=== PATIENT | female | born 1990 | race Caucasian/White ===

== ENCOUNTER 2022-01-16 04:59 | Emergency (ER) | payer MEDICAID, SELFPAY ==
[2022-01-16 05:06] VITALS: BP 105/71; PULSE 95; RESP 18; TEMP 36.4; O2SAT 98; BMI 21.9
--- NOTE | 2022-01-16 05:36 | CRLHL7_ITS ---
For Patients: As a result of the Cures Act, medical imaging exams and procedure reports are released immediately into your electronic medical record. You may view this report before your referring provider. If you have questions, please contact your health care provider. Indication: Fall, impact to the bridge of the nose Technique: Volumetric multidetector CT images of the head were obtained without the administration of low osmolar intravenous contrast. Comparison: None available Findings: There is no intra-axial or extra-axial fluid collection. There is no mass effect or midline shift. The ventricles and sulci are normal in size and position for age. The brain parenchyma is grossly preserved in attenuation and montoya-white differentiation. The orbits and their contents are grossly within normal limits. The bony calvarium is grossly intact. There is mild superficial soft tissue laceration at the nasion without definite evidence of underlying displaced fracture. The mastoid air cells are well aerated. Impression: Mild superficial soft tissue laceration at the nasion without evidence of acute intracranial abnormality. No evidence of underlying nasal bone fracture. Please note that all CT scans at this facility use dose modulation, iterative reconstruction, and/or weight-based dosing when appropriate to reduce radiation dose to as low as reasonably achievable. Dictated by Dave Coronel MD @ 01/16/2022 6:55:21 AM (Electronically Signed)
--- NOTE | 2022-01-16 05:37 | ED.WOUNDLAC ---
HPI - Wound/Laceration General Time Seen by Provider: 05:36 Date Seen: 01/16/22 Chief Complaint: Laceration/Wound Stated Complaint: Face laceration Time Seen by Provider: 01/16/22 05:00 Source: patient Mode of arrival: ambulatory Limitations: no limitations History of Present Illness HPI narrative: Patient is a 31-year-old female who was at her sister's house when she got up from sleep walk 2 steps and fell forward hitting her face on the ground. She suffered a laceration to the bridge of her nose. It bled a fair bit. And she came here to the emergency room for an assessment. There was no loss of consciousness. There is no neck pain. Denies any numbness tingling or weakness. He did drink some alcohol last night Onset (ago): minute(s) (30) Location: other (Bridge of the nose) Place: home Patient tetanus UTD: Yes Context: accidental Associated symptoms: pain Related Data Previous Rx's Medication Instructions Recorded trazodone 50 mg tablet 50 - 150 mg PO .qhs #30 tab 01/09/22 venlafaxine 150 mg 150 mg PO QAM #90 cap 01/09/22 capsule,extended release 24 hr venlafaxine 75 mg capsule,extended 75 mg PO QAM #90 cap 01/09/22 release 24 hr Allergies Allergy/AdvReac Type Severity Reaction Status Date / Time No Known Drug Allergies Allergy Verified 01/16/22 05:09 Review of Systems Status of ROS: Reports: 10 or more systems reviewed and unremarkable except as noted in History and below PFSH PFSH Medical History Anxiety and depression Crohn disease Insomnia Surgical History No significant past surgical history Family History Father Asthma COPD (chronic obstructive pulmonary disease) Paternal Grandfather Heart disease Maternal Grandmother Leukemia Skin cancer Mother Suicide Social History Narrative: father is still living sister is in good health depo-provera contraceptive status history of tobacco use Smoking Status: Current every day smoker What tobacco products do you use: cigarettes How often do you have a drink containing alcohol: monthly or less AUDIT-C Alcohol total score: 1 Non-prescribed substance use: denies use Little interest or pleasure in doing things: nearly every day Feeling down, depressed, or hopeless: several days Exam Const: Vital Signs, click to edit/add: Vital Signs - 24 hr 01/16/22 05:06 01/16/22 06:06 Temperature 97.6 F 97.6 F Pulse Rate [Right Pulse Oximeter] 95 89 Respiratory Rate 18 18 Blood Pressure [Ri ght Upper Arm] 105/71 110/75 Pulse Oximetry 98 98 Documenting provider has reviewed patient's vital signs: yes Common normals: no apparent distress, average body habitus, oriented x3, no limitations, healthy appearing, alert and well nourished General appearance: cooperative, comfortable, well kempt, well developed and odor of alcohol detected Orientation/consciousness: Yes awake, Yes oriented to person, Yes oriented to place and Yes oriented to time HENMT: Common normals: normocephalic, hearing grossly normal bilaterally, external ears normal, EAC's normal, TM's normal bilaterally, nasal mucous membranes and turbinates normal, moist oral mucous membranes, oropharynx normal, dentition normal and gingiva normal Head and scalp: normocephalic Face and sinus: sinuses nontender, face symmetric, normal transillumination of sinuses and facial laceration (There is the 2 cm laceration across the bridge of her nose. T) Nose: nasal mucous membranes and turbinates normal, septum normal, no nasal discharge, external nose abnormal nasal laceration and mucous membranes and turbinates abnormal General ear: hearing grossly impaired External ear: external ears normal External auditory canal: EAC's normal Tympanic membrane: TM's normal bilaterally Mouth: oral and palatal mucosa normal, lip normal, tongue normal and moist mucous membranes abnormal Eye: Common normals: PERRL, EOMs intact bilaterally, conjunctivae normal, no scleral icterus, no papilledema, normal visual restrepo by confrontation and fundi normal bilaterally General eye: normal appearance of both eyes and normal light reflex Conjunctiva: conjunctiva(e) normal Pupil: PERRL Direct Ophthalmoscopy: normal light reflex, no papilledema and fundi normal bilaterally Neck & C-Spine: Common normals: full ROM, no lymphadenopathy, supple, no meningeal signs and no JVD General: normal visual inspection and trachea midline Lymph: Lymphatic: no lymphadenopathy noted and no lymphedema noted Chest: Common normals: inspection of chest normal and palpation of chest normal Resp: Common normals: normal respiratory effort, no retractions, no use of accessory muscles and clear to auscultation bilaterally Effort & inspection: able to speak in complete sentences Auscultation: clear to auscultation bilaterally Cardio: Common normals: no JVD, regular rate, regular rhythm, S1 normal heart sound, S2 normal heart sound, no gallops, no clicks, no murmurs, no rub and peripheral pulses 2+ throughout Rate: regular rate Rhythm: regular rhythm Heart sounds: S1 normal and S2 normal Peripheral pulses: pulses 2+ throughout : Common normals: no CVA tenderness Bladder/kidney exam: no CVA tenderness Back & Pelvis: Common normals: no CVA tenderness, thoracic and lumbar spine normal to inspection, no thoracic nor lumbar tenderness, thoraco-lumbar ROM normal and straight leg raise negative bilaterally Extremity: Common normals: normal to inspection, full ROM, normal capillary refill, no joint enlargement, no clubbing, cyanosis or edema, no calf tenderness and no pedal edema General: normal exam except as noted Neuro: Common normals: oriented x3 Sensorium/orientation: awake, alert, oriented to person, oriented to place and oriented to time Meningeal signs: no meningeal signs Cranial nerves: CN normal except as noted Speech: speech normal Gait (neuro): normal gait Motor exam: strength 5/5 throughout Psych: Appearance: well kempt Course Course Hospital Course: Let is applied to the wound, the wound is cleaned out with Hibiclens, CT scan is obtained, showing no evidence of intracranial abnormality, no bony abnormality also. By my review. Radiology is reviewed in in agreement. Skin adhesive is used. This closed nicely the laceration. Eyes were protected the patient was put in Trendelenburg, glue was used across the bridge of the nose this brought the wound nicely together. No complications patient was able to see fine afterwards. Vital Signs Vital signs: Initial Vital Signs Temperature 97.6 F 01/16/22 05:06 Temperature Source Temporal Artery Scan 01/16/22 05:06 Pulse Rate 95 01/16/22 05:06 Respiratory Rate 18 01/16/22 05:06 Blood Pressure 105/71 01/16/22 05:06 Blood Pressure Mean 82 01/16/22 05:06 Blood Pressure Position Sitting 01/16/22 05:06 Pulse Oximetry 98 01/16/22 05:06 Oxygen Delivery Method 01/16/22 05:06 Vital Signs Temperature 97.6 F 01/16/22 05:06 Pulse Rate 95 01/16/22 05:06 Respiratory Rate 18 01/16/22 05:06 Blood Pressure 105/71 01/16/22 05:06 Pulse Oximetry 98 01/16/22 05:06 Temperature 97.6 F 01/16/22 06:06 Pulse Rate 89 01/16/22 06:06 Respiratory Rate 18 01/16/22 06:06 Blood Pressure 110/75 01/16/22 06:06 Pulse Oximetry 98 01/16/22 06:06 MDM - Wound/Laceration MDM Narrative Medical decision making narrative: Life-threatening differential diagnosis is considered include: Subarachnoid hemorrhage, subdural hemorrhage, epidural hemorrhage. Other differential diagnosis considered include concussion, closed head injury, or neck fracture. Differential Diagnosis Differential diagnosis: Likely laceration, abscess, abrasion and avulsion of skin Medical Records Attestation: I reviewed the patient's medical records. Imaging Data CT scan - head: Attestation: I have reviewed the pertinent imaging results. My impression: No acute intracranial abnormality no bony abnormality, Radiologist's impression: Patient: DONAVON ATKINSON Facility:?[facility] Patient ID:?[id number] Site Patient ID:?[id number]. Site :?[id number] Study:?CT Head without contrast-01/16/2022 6:23:26 AM Ordering Physician:Lety Chappell Final Report: Indication: Fall, impact to the bridge of the nose Technique: Volumetric multidetector CT images of the head were obtained without the administration of low osmolar intravenous contrast. Comparison: None available Findings: There is no intra-axial or extra-axial fluid collection. There is no mass effect or midline shift. The ventricles and sulci are normal in size and position for age. The brain parenchyma is grossly preserved in attenuation and montoya-white differentiation. The orbits and their contents are grossly within normal limits. The bony calvarium is grossly intact. There is mild superficial soft tissue laceration at the nasion without definite evidence of underlying displaced fracture. The mastoid air cells are well aerated. Impression: Mild superficial soft tissue laceration at the nasion without evidence of acute intracranial abnormality. No evidence of underlying nasal bone fracture. Please note that all CT scans at this facility use dose modulation, iterative reconstruction, and/or weight-based dosing when appropriate to reduce radiation dose to as low as reasonably achievable. Dictated by Dave Coronel MD @ 01/16/2022 6:55:21 AM (Electronic Signature) Discharge Plan Discharge Clinical Impression: Laceration, Head injury Patient Disposition: Home, Self-Care Condition: Improved Instructions: Head Injury (ED), Skin Adhesive Care (ED), Head Laceration (ED) Additional Instructions: Home rest please do not manipulate the glue, takes approximately 2 days to get a strong his sutures. Then comes off by itself by day 5. Infection which very rarely can occurs swelling redness pain and fevers. He has come back if these occur. Activity Level: No Restrictions and Activity as Tolerated Activity Detail: No heavy lifting, Prescriptions: No Action trazodone 50 mg tablet 50 - 150 mg PO .qhs Qty: 30 0RF venlafaxine 75 mg capsule,extended release 24hr 75 mg PO QAM Qty: 90 0RF Rx Instructions: 1 po daily along with 150mg for a total of 225mg daily venlafaxine 150 mg capsule,extended release 24hr 150 mg PO QAM Qty: 90 0RF Rx Instructions: 1 po daily along with 75mg for total of 225mg daily Follow Up/Referrals: Jing Manuel PA-C [Primary Care Provider] - Stand Alone Forms: Daily Sales Exchange Info Instructions
[2022-01-16 06:06] VITALS: BP 110/75; PULSE 89; RESP 18; TEMP 36.4; O2SAT 98
[2022-01-16] MEDS: ACETAMINOPHEN 500 MG TABLET PO (06:33)
== END 2022-01-16 07:10 | disposition home or self-care (01) ==
PROVIDERS: Emergency Provider Family Medicine; PCP Physician Assistant Medical
DX: S01.21XA Laceration without foreign body of nose, initial encounter (principal); W01.10XA Fall on same level from slipping, tripping and stumbling with subsequent striking against unspecified object, initial encounter
CPT/HCPCS: 12011; 70450; 99284; A9270

== ENCOUNTER 2022-04-24 21:35 | Outpatient (REF) | payer MEDICAID, SELFPAY ==
[2022-04-24 22:05] LABS: Basophils Percent Auto 0.3 % (0.0-3.0); Hemoglobin* 12.8 gm/dL (12.0-16.0); Lymphocytes Percent Auto 14.2 % (20-44); Mean Corpuscular HGB Conc 35 gm/dL (32-36); Mean Corpuscular Hemoglobin 37 pg (26-34); Mean Corpuscular Volume 107 fL (80-100); Monocytes Percent Auto 15.7 % (0.0-11.0); Neutrophils Percent Auto 67.8 % (42.0-72.0); Platelet Count* 255 K/uL (140-440); RDW Coefficient of Variation % 14.4 % (11.5-15.5); Red Blood Count 3.45 m/uL (4.00-5.20); White Blood Count* 3.44 K/uL (4.50-11.00)
[2022-04-24 22:06] LABS: Slide Review Reflex No
[2022-04-24 22:08] LABS: Albumin* 4.7 g/dL (3.3-5.0); Chloride* 101 mmol/L (96-114)
[2022-04-24 22:09] LABS: Potassium* 3.2 mmol/L (3.6-5.1); Sodium* 137 mmol/L (135-149)
[2022-04-24 22:11] LABS: Creatinine* 0.6 mg/dL (0.5-1.5); Estimated Glomerular Filt Rate 124 ml/min
[2022-04-24 22:12] LABS: Alanine Aminotransferase* 76 U/L (4-35); Alkaline Phosphatase* 127 U/L (40-150); Aspartate Amino Transferase* 128 U/L (12-35); Bilirubin Direct* 0.2 mg/dL (0.0-0.5); Bilirubin Total* 0.5 mg/dL (0.1-1.5); Blood Urea Nitrogen* 7 mg/dL (5-24); Carbon Dioxide* 26 mmol/L (20-32); Glucose* 88 mg/dL (60-115); Total Protein* 7.1 g/dL (6.0-8.3)
[2022-04-24 22:13] LABS: Calcium* 9.9 mg/dL (8.4-10.6)
[2022-04-24 22:29] LABS: C Reactive Protein* < 0.5 mg/dL (0.5-1.0); Vitamin D 25 Hydroxy* 24 ng/mL (30-80)
[2022-04-24 22:43] LABS: Hepatitis B Surface Antigen* Negative (Negative)
[2022-04-24 23:02] LABS: Vitamin B12* 505 pg/mL (243-894)
[2022-04-24 23:05] LABS: Hepatitis B Surface Antibody* Negative (Negative)
[2022-04-26 16:46] LABS: Hepatitis A Antibodies, Total Negative (Negative); Hepatitis B Core Antibodies Negative (Negative)
== END 2022-04-24 21:36 | disposition home or self-care (01) ==
LOC: LAB 21:35
PROVIDERS: PCP Physician Assistant Medical; Visit Provider Physician Assistant Medical
DX: F41.9 Anxiety disorder, unspecified (principal); D84.821 Immunodeficiency due to drugs; K50.90 Crohn's disease, unspecified, without complications; Z79.899 Other long term (current) drug therapy
CPT/HCPCS: 36415; 80053; 80076; 82306; 82607; 85025; 86140; 86480; 86704; 86706; 86708; 87340

== ENCOUNTER 2022-05-06 16:53 | Outpatient (CLI) | payer MEDICAID, SELFPAY ==
--- NOTE | 2022-05-06 17:00 | CRLHL7_ITS ---
For Patients: As a result of the Cures Act, medical imaging exams and procedure reports are released immediately into your electronic medical record. You may view this report before your referring provider. If you have questions, please contact your health care provider. INDICATION: Elevated liver function tests TECHNIQUE: Ultrasound abdomen limited. Sonographic images of the right upper quadrant were obtained using peter-scale and color Doppler images. COMPARISON: None FINDINGS: Liver: Mild to moderate fatty infiltration of liver is noted. Gallbladder: No gallstones or sludge seen in the lumen. The gallbladder wall is normal in appearance. No pericholecystic fluid is present. No sonographic Ulloa???s sign is present. Common bile duct: 4 mm. No intrahepatic biliary ductal dilatation seen. Pancreas: The visualized pancreas has a coarsened parenchymal echotexture and otherwise unremarkable appearance. No ductal dilatation is identified. Right Kidney: 12.2 cm. No hydronephrosis or ureterectasis is seen. Vascular: The visualized abdominal aorta and IVC are unremarkable. IMPRESSION: 1. Mild to moderate fatty infiltration of liver is noted. Dictated by Shekhar Hanley MD @ 05/07/2022 8:00:34 AM Dictated by: Shekhar Hanley MD @ 05/07/2022 08:00:38 (Electronically Signed)
== END 2022-05-06 16:54 | disposition home or self-care (01) ==
LOC: US 16:53
PROVIDERS: PCP Physician Assistant Medical; Visit Provider Nurse Practitioner Family
DX: R79.89 Other specified abnormal findings of blood chemistry (principal); K76.0 Fatty (change of) liver, not elsewhere classified
CPT/HCPCS: 76705

== ENCOUNTER 2022-09-04 23:21 | Outpatient (REF) | payer MEDICAID, SELFPAY ==
[2022-09-05 02:58] LABS: Chloride* 104 mmol/L (96-114); Sodium* 139 mmol/L (135-149)
[2022-09-05 03:01] LABS: Blood Urea Nitrogen* 7 mg/dL (5-24); Calcium* 9.7 mg/dL (8.4-10.6); Carbon Dioxide* 26 mmol/L (20-32); Cholesterol* 205 mg/dL (90-199); Creatinine* 0.5 mg/dL (0.5-1.5); Estimated Glomerular Filt Rate 129 ml/min; Glucose* 121 mg/dL (60-115); Triglycerides* 75 mg/dL (40-149)
[2022-09-05 03:02] LABS: Iron* 71 ug/dL (37-170); Magnesium* 1.5 mg/dL (1.5-2.6)
[2022-09-05 03:19] LABS: Vitamin D 25 Hydroxy* 22 ng/mL (30-80)
[2022-09-05 03:38] LABS: Ferritin* 50.4 ng/mL (6.24-137.0)
[2022-09-05 03:51] LABS: Vitamin B12* 602 pg/mL (243-894)
[2022-09-05 04:09] LABS: Hemoglobin A1C* 4.67 % (0-5.6)
[2022-09-05 04:53] LABS: Potassium* 2.6 mmol/L (3.6-5.1)
[2022-09-05 04:54] LABS: HDL Cholesterol* 127 mg/dL (>=50); LDL Cholesterol Calculated 63 mg/dL (<100)
[2022-09-06 16:50] LABS: Zinc, Serum/Plasma 52.1 ug/dL (60.0-120.0)
[2022-09-06 19:12] LABS: Folate, Serum 13.6 ng/mL (>=5.9)
[2022-09-07 20:14] LABS: Total T3 171 ng/dL (80-200)
== END 2022-09-04 23:22 | disposition home or self-care (01) ==
LOC: NPINS 23:21
PROVIDERS: PCP Physician Assistant Medical
DX: F33.1 Major depressive disorder, recurrent, moderate (principal); F51.01 Primary insomnia
CPT/HCPCS: 80048; 80061; 82306; 82607; 82728; 82746; 83036; 83540; 83735; 84436; 84443; 84480; 84630

== ENCOUNTER 2022-10-06 16:07 | Outpatient (CLI) | payer MEDICAID, SELFPAY | END 2022-10-06 16:08 | disposition home or self-care (01) | PROVIDERS: PCP Physician Assistant Medical; Referring Provider Physician Assistant Medical; Visit Provider Physician Assistant Medical | DX: E87.6 Hypokalemia (principal) | CPT/HCPCS: 84132 ==

== ENCOUNTER 2022-10-08 10:04 | Outpatient (RCR) | payer MEDICAID, SELFPAY ==
[2022-10-08 10:30] VITALS: BP 118/89; PULSE 97; RESP 16; TEMP 37; O2SAT 97
[2022-10-08] MEDS: POTASSIUM CHLORIDE 10 MEQ, LIDOCAINE 1 % 1 ML in 0.9 % SODIUM CHLORIDE 100 ml 100 ML 106 MEQ IVPB ×4 (11:13→14:39)
== END 2023-04-06 23:59 | disposition home or self-care (01) ==
LOC: CCIC 10:04
PROVIDERS: PCP Physician Assistant Medical; Referring Provider Physician Assistant Medical; Visit Provider Clinical Nurse Specialist
DX: E87.6 Hypokalemia (principal)
CPT/HCPCS: 96365; 96366; J3480

== ENCOUNTER 2022-10-09 16:35 | Outpatient (CLI) | payer MEDICAID, SELFPAY | END 2022-10-09 16:36 | disposition home or self-care (01) | LOC: NFLDREF 22:20 | PROVIDERS: PCP Physician Assistant Medical; Referring Provider Physician Assistant Medical; Visit Provider Family Medicine | DX: E87.6 Hypokalemia (principal) | CPT/HCPCS: 84132 ==

== ENCOUNTER 2022-10-22 15:25 | Outpatient (CLI) | payer MEDICAID, SELFPAY | END 2022-10-22 15:26 | disposition home or self-care (01) | LOC: NFLDREF 10-23 00:16 | PROVIDERS: PCP Physician Assistant Medical; Referring Provider Physician Assistant Medical; Visit Provider Physician Assistant Medical | DX: E87.6 Hypokalemia (principal) | CPT/HCPCS: 84132 ==

== ENCOUNTER 2023-01-05 15:13 | Outpatient (CLI) | payer MEDICAID, SELFPAY | END 2023-01-05 15:14 | disposition home or self-care (01) | LOC: NFLDREF 22:15 | PROVIDERS: PCP Physician Assistant Medical; Referring Provider Physician Assistant Medical; Visit Provider Physician Assistant Medical | DX: E87.6 Hypokalemia (principal); Z79.3 Long term (current) use of hormonal contraceptives | CPT/HCPCS: 84132 ==

== ENCOUNTER 2023-09-14 08:48 | Outpatient (CLI) | payer MEDICAID, SELFPAY | END 2023-09-14 08:49 | disposition home or self-care (01) | PROVIDERS: PCP Physician Assistant Medical; Visit Provider Physician Assistant Medical | DX: Z13.9 Encounter for screening, unspecified (principal); E87.6 Hypokalemia; F98.8 Other specified behavioral and emotional disorders with onset usually occurring in childhood and adolescence | CPT/HCPCS: 80053; 80061; 82306; 82728; 84443 ==

== ENCOUNTER 2024-04-12 08:30 | Outpatient (CLI) | payer MEDICAID, SELFPAY | END 2024-04-12 08:31 | disposition home or self-care (01) | LOC: NFLDREF 04-13 08:32 | PROVIDERS: PCP Physician Assistant Medical; Referring Provider Physician Assistant Medical; Visit Provider Physician Assistant Medical | DX: E87.6 Hypokalemia (principal); F10.10 Alcohol abuse, uncomplicated; F98.8 Other specified behavioral and emotional disorders with onset usually occurring in childhood and adolescence; F41.9 Anxiety disorder, unspecified; F32.A Depression, unspecified; Z79.3 Long term (current) use of hormonal contraceptives | CPT/HCPCS: 80053; 84443 ==

== ENCOUNTER 2024-08-08 15:46 | Outpatient (CLI) | payer MEDICAID, SELFPAY | END 2024-08-08 15:47 | disposition home or self-care (01) | LOC: FRMREF 15:46 | PROVIDERS: PCP Physician Assistant Medical; Visit Provider Physician Assistant Medical | DX: E87.6 Hypokalemia (principal) | CPT/HCPCS: 84132 ==

== ENCOUNTER 2024-12-16 17:24 | Emergency (ER) | payer MEDICAID, SELFPAY ==
--- OUTSIDE RECORDS SUMMARY | 2022-01-14 07:01 | XMS_ITS | Continuity of Care Document ---
Author Organization [facility] Address [address] [address] [place] [address] Phone Care Team Providers Care Private Watchman Name Role Phone Feliberto Olvera MD, Alejo Mcclellan Unavailabl e Advance Directives Directive Yes / No Effective Date File Name No Information Encounters Encounter Description Practice Location Reason(s) For Visit Diagnoses Date Provider Providers Copied on Encounter [facility], [address] [address], [place], [place], [id number], [place] tel:[phone] [facility] No Information Feliberto Dhillon. [address] [facility], [facility] [address], [place], [place], [id number], [place]. tel:[phone] Family History Family Member Type Diagnosis Age At Onset No Information Payers Payer name Insurance type Covered republican ID Authoriza tion(s) No Information Social History Type Description Quantity Date Captured Comments Sex Female Smoking Status No Information Chief Complaint And Reason For Visit No Information Reason For Referral Reason For Referral No Information History Of Present Illness Encounter Date Complaint History Of Prese nt Illness No Information Functional Status Date Functional Assessmen t No Information Instructions Date Instruction Additional Infor mation No Information Assessments Type Assessment Date No Information Patient Care Teams Name Effective Dates (start - stop) Status Members No Information
--- OUTSIDE RECORDS SUMMARY | 2022-01-14 07:01 | XMS_ITS | Continuity of Care Document ---
Author Organization [facility] Address [address] [address] [place] [address] Phone Care Team Providers Care Crtt Name Role Phone Feliberto Olvera MD, Alejo Mcclellan Unavailabl e Advance Directives Directive Yes / No Effective Date File Name No Information Encounters Encounter Description Practice Location Reason(s) For Visit Diagnoses Date Provider Providers Copied on Encounter [facility] [place], [address] [address], [place], [place], [id number], [place] tel:[phone] [facility] No Information Feliberto Dhillon. [address] [facility], [facility] [address], [place], [place], [id number], [place]. tel:[phone] Family History Family Member Type Diagnosis Age At Onset No Information Payers Payer name Insurance type Covered democrat ID Authoriza tion(s) No Information Social History [...]
--- OUTSIDE RECORDS SUMMARY | 2023-10-28 04:51 | XMS_ITS | Continuity of Care Document ---
Author Organization [facility] Address [address] [address] [place] [address] Phone Care Team Providers Care Baking Assistant Name Role Phone VargastrSobia Dozier Unavailable Unavailable Allergies, Adverse Reactions, Alerts Substance Reaction Status Criticality No Known Allergies Active No Inform ation Medications Medication Instructions Dosage Effective Dates (start - stop) Status Comments Adderall 10 mg tablet take 2.5 tablet by oral route every day 25 MG - Active sertraline 100 mg tablet take 1.5 tablet by oral route every day 150 MG - Active POTASSIUM CHLORIDE (unknown strength) take 1 tablet by oral route every day with food Not Available - Active Vitamin D3 125 mcg (5,000 unit) tablet take 2 tablet by oral route every day 2 tablet - Active Humira(CF) Pen 40 mg/0.4 mL subcutaneous kit inject 0.4 milliliter by subcutaneous route every 2 weeks in the abdomen or thigh (rotate sites) 40 MG - Active 1 kit = 2 pens ICD K50.80. Humira Pen Crohn's-[facility] Start 80 mg/0.8 mL INJECTION PEN IJ KIT Inject 160 mg (2 pens) on day 1 and 80 mg (1 pen) on day 15 in the abdomen or thigh (rotate sites) by subcutaneous route - Active trazodone 50 mg tablet take 1 Tablet by oral route every day at bedtime 50 MG - Active Procedures Procedure Date Established Level 4 Routine Serum Collection Routine Serum Collection Established Level 3 Offic/outpt E&m Estab Low-mod Routine Serum Collection Established Level 4 Colonoscopy Flex; W/bx 1/mx Level Iv-surg Path Gross/micro Routine Serum Collection New Level 4 Advance Directives Directive Yes / No Effective Date File Name No Information Encounters Encounter Description Practice Location Reason(s) For Visit Diagnoses Date Provider Providers Copied on Encounter [facility], [address] [address], [place], [place], [id number], [place] tel:[phone] [facility] No Information 4 Edstrdereck Ramsay. [address] [facility], [address], [id number], [place]. tel:[phone] Established Level 4 [facility], [address] [address], [facility] [place], [id number], [place] tel:[phone] [facility] GI Symptoms or Concerns (chief complaint) Additional Narrative (chief complaint) Crohn's disease of both small and lg int w/o complications 3 [facility] Ramsay. [address] [facility], [facility] [address], [place], [id number], [place]. tel:[phone] Referring Provider: Referral Self, USE FOR SELF REFERRALS. [facility], [address] [address], [facility] [place], [address], [place] tel:[phone] [facility] No Information 3 [facility] Ramsay. [address] [facility], [facility] [address], [place], [address], [place]. tel:[phone] [facility], [address] [address], [facility] [place], [id number], [place] tel:[phone] [facility] No Information 3 [facility] Ramsay. [address] [facility], [facility] [address], [place], [id number], [place]. tel:[phone] [facility], [address] [address], [place], [id number], [place] tel:[phone] [facility] Crohn's disease of both small and lg int w/o complications 3 [facility] Ramsay. [address] [facility], [facility] [address], [place], [place], [address], [place]. tel:[phone] Referring Provider: Referral Self, USE FOR SELF REFERRALS. [facility], [address] [address], [place], [id number], [place] tel:[phone] [facility] Crohn's disease of both small and lg int w/o complications 3 [facility] Ramsay. [address] [facility], [facility] [address], [place], [address], [place]. tel:[phone] Referring Provider: Jing POSEY, [address], [place], [address]. tel:[phone] [facility], [address] [address], [place], [address], [place] tel:[phone] [facility] No Information 3 Feliberto Dhillon. [address] [facility], [facility] [address], [place], [place], [id number], [place]. tel:[phone] [facility], [address] [address], [place], [address], [place] tel:[phone] [facility] Crohn's disease of both small and lg int w/o complications 3 [facility] Ramsay. [address] [facility], [facility] [address], [place], [id number], [place]. tel:[phone] [facility], [address] [address], [place], [address], [place] tel:[phone] [facility] Crohn's disease of both small and lg int w/o complicationsP soriasis 3 [facility] Ramsay. [address], [id number], [place]. tel:[phone] Established Level 3 [facility], [address] [address], [place], [id number], [place] tel:[phone] [facility] GI Symptoms or Concerns (chief complaint) Crohn's disease of both small and lg int w/o complicationsE levated LFTs Jun- 1- 2 [facility] Ramsay. [address] [facility] [address], [place], [id number], [place]. tel:[phone] Referring Provider: Jing POSEY, [address], [place], [address]. tel:[phone] [facility], [address] [address], [place], [id number], [place] tel:[phone] [facility] Elevated LFTs Apr- 4 2 [facility] Ramsay. [address] [facility] [address], [place], [address], [place]. tel:[phone] [facility], [address] [address], [place], [id number], [place] tel:[phone] [facility] Elevated LFTs Apr- 0-202 2 [facility] Ramsay. [address], [id number], [place]. tel:[phone] Offic/outpt E&m Estab Low-mod [facility], [address] [address], [place], [id number], [place] tel:[phone] [facility] GI Symptoms or Concerns (chief complaint) Elevated LFTsCrohn's disease of both small and lg int w/o complications Apr- 8 2 [facility] Stewart. [address], [id number], [place]. tel:[phone] Referring Provider: Referral Self, USE FOR SELF REFERRALS. [facility], [address] [address], [place], [address], [place] tel:[phone] [facility] No Information 2 Edstrdereck Ramsay. [address] [facility], [facility] [address], [place], [place], [address], [place]. tel:[phone] [facility], [address] [address], [place], [address], [place] tel:[phone] [facility] Crohn's disease without complication, unspecified gastrointestin al tract location 2 [facility] Ramsay. [address] [facility], [facility] [address], [place], [place], [id number], [place]. tel:[phone] [facility], [address] [address], [place], [address], [place] tel:[phone] [facility] No Information 2 Edstrdereck Ramsay. [address] [facility], [facility] [address], [place], [place], [address], [place]. tel:[phone] Established Level 4 [facility], [address] [address], [place], [address], [place] tel:[phone] [facility] GI Symptoms or Concerns (chief complaint) Crohn's disease of both small and lg int w/o complications 2 Edstrdereck Ramsay. [address] [facility], [facility] [address], [place], [place], [address], [place]. tel:[phone] Referring Provider: Referral Self, USE FOR SELF REFERRALS. [facility], [address] [address], [place], [address], [place] tel:[phone] [facility] Crohn's disease of both small and large intestine without complication 2 No Information [facility], [address] [address], [place], [address], [place] tel:[phone] [facility] GI Symptoms or Concerns (chief complaint) Crohn's disease of both small and large intestine without complicationCr ohn's disease of both small and lg int w/o complications No Information Referring Provider: Referral Self, USE FOR SELF REFERRALS. [facility], [address] [address], [place], [id number], [place] tel:[phone] [facility] Crohn's disease of both small and lg int w/o complications No Information Referring Provider: Referral Self, USE FOR SELF REFERRALS. New Level 4 [facility], [address] [address], [place], [id number], [place] tel:[phone] [facility] GI Symptoms or Concerns (chief complaint) Crohn's disease, acute, unspecified complication 2 [facility] Ramsay. [address] [facility], [address], [place], [place], [address], [place]. tel:[phone] Referring Provider: Jing Manuel PAC, [address], [place], [address]. tel:[phone] [facility], [address] [address], [place], [id number], [place] tel:[phone] [facility] No Information 2 Feliberto Dhillon. [address] [facility], [address], [place], [place], [address], [place]. tel:[phone] Family History Family Member Type Diagnosis Age At Onset Mother Problem (finding) Alcoholism Father Problem (finding) Asthma Sister Problem (finding) Alcoholism Father Problem (finding) Alcoholism Immunizations Vaccine Date Status Comments Afluria Qd administered Note: [facility] bi-directional interface ; Source: Other Registry SARS-COV-2 (COVID-19) vaccin e, mRNA, spike protein, LNP, preservative free, 30 mcg/0.3mL dose, tonya-sucrose formulation administered Note: MII C bi- directional interface ; Source: Other Registry Prevnar 13 administered Note: [facility] bi-d irectional interface ; Source: Other Registry SARS-COV-2 (COVID-19) vaccin e, mRNA, spike protein, LNP, preservative free, 30 mcg/0.3mL dose, tonya-sucrose formulation administered Note: M[facility] C bi- directional interface ; Source: Other Registry Influenza, injectable, Madin Rebecca Canine Kidney, preservative free, quadrivalent administered Note: OR IC bi- directional interface ; Source: Other Registry Afluria Qd administered Note: [facility] bi-directional interface ; Source: Other Registry Afluria Qd administered Note: [facility] bi-directional interface ; Source: Other Registry tetanus toxoid, reduced diphtheria toxoid, and acellular pertussis vaccine, adsorbed administered Note: [facility] bi-direct ional interface ; Source: Other Registry Afluria Qd administered Note: [facility] bi-directional interface ; Source: Other Registry Afluria Qd administered Note: M [facility] bi-directional interface ; Source: Other Registry tetanus toxoid, reduced diphtheria toxoid, and acellular pertussis vaccine, adsorbed administered Note: [facility] bi-direct ional interface ; Source: Other Registry Influenza, seasonal, injectable, preservative free administered Note: [facility] bi-directional interface ; Source: Other Registry human papilloma virus vaccin e, quadrivalent administered Note: [facility] bi-direct ional interface ; Source: Other Registry human papilloma virus vaccin e, quadrivalent administered Note: [facility] bi-direct ional interface ; Source: Other Registry meningococcal polysaccharide vaccine (MPSV4) administered Note: [facility] bi-direct ional interface ; Source: Other Registry Influenza, seasonal, injectable administe red Note: [facility] bi- directional interface ; Source: Other Registry Pneumococcal conjugate PCV20 pending Source: New Immunization Record Payers Payer name Insurance type Covered green party ID Authoriza tion(s) [employer] [facility] [id number] Social History Type Description Quantity Date Captured Comments Alcohol Use Details Unknown Caffeine Use Details Unknown Tobacco Use Status No Information Smoking Status No Information Sex Female Chief Complaint And Reason For Visit No Information Reason For Referral Reason For Referral No Information Plan Of Treatment Date Type Action Status Referral Ordered: Adalimumab Concentration and Anti Adalimumab Antibody Appointment date/timeframe: 02/25/2023 ordered Referral Ordered: Folic Acid Appointment date/timeframe: 11/25/2022 ordered Referral Ordered: referred to Dermatology psoriasis First Available Appointment date/timeframe: 08/17/2022 ordered Referral Ordered: follow-up visit with Sobia NOLEN 6 Months Appointment date/timeframe: 6 Months ordered Referral Ordered: Ultrasound Liver Appointment date/timeframe: First Available ordered Referral Ordered: Ova + Parasites Appointment date/timeframe: 04/21/2022 ordered Referral Ordered: follow-up visit with Sobia NOLEN 3 Months Appointment date/timeframe: 3 Months ordered Referral Ordered: Hepatic Function Panel Appointment date/timeframe: 04/03/2022 ordered Referral Ordered: Folate, RBC and Serum Appointment date/timeframe: 04/03/2022 ordered Referral Ordered: Celiac: TTG IgA + Total IgA Appointment date/timeframe: 04/03/2022 ordered Referral Ordered: AntiMitochondrial Ab (AMA), By IFA Appointment date/timeframe: 04/03/2022 ordered Referral Ordered: Hep C Ab Appointment date/timeframe: 04/03/2022 ordered Referral Ordered: Antinuclear Antibodies, NEIL, IFA Appointment date/timeframe: 04/03/2022 ordered Referral Ordered: Calprotectin, Fecal Appointment date/timeframe: First Available ordered Referral Ordered: C-Reactive Protein Appointment date/timeframe: 02/10/2022 ordered Referral Ordered: QuantiFERON TB Gold Plus Appointment date/timeframe: 02/10/2022 ordered Referral Ordered: CMP Appointment date/timeframe: 02/10/2022 ordered Referral Ordered: Thiopurine Methyltransferase (TPMT) Appointment date/timeframe: 02/10/2022 ordered Referral Ordered: Hep B Core Ab, Tot Appointment date/timeframe: 02/10/2022 ordered Referral Ordered: Vitamin D, 25-Hydroxy Appointment date/timeframe: 02/10/2022 ordered Referral Ordered: Hep A Ab Appointment date/timeframe: 02/10/2022 ordered Referral Ordered: Stool Test Panel, Comprehensive Appointment date/timeframe: 02/10/2022 ordered Referral Ordered: Colonoscopy Appointment date/timeframe: 03/02/2022 ordered Referral Ordered: Hep B Surface Ab Appointment date/timeframe: 02/10/2022 ordered Referral Ordered: MRI Enterography With Contrast Per Radiology Appointment date/timeframe: 02/18/2022 ordered Referral Ordered: CBC w/diff Appointment date/timeframe: 02/10/2022 ordered Referral Ordered: Vitamin B12 Appointment date/timeframe: 02/10/2022 ordered Referral Ordered: Hep B surface Ag Appointment date/timeframe: 02/10/2022 ordered Unknown Immunization Pneumococcal conjugate PCV20 ordered History Of Present Illness Encounter Date Complaint History Of Prese nt Illness Additional Narrative This is a p noblehanh 32-year-old female presenting via virtual visit for followup regarding Crohn's ileocolitis. She also has a history of psoriasis. Patient has been on biweekly Humira since April 2022 after colonoscopy in February 2022 showed active Crohn's disease in the TI with evidence of stricture and MRE showed 20cm segment of terminal ileitis. Symptoms have improved on Humira and have been stable. She had a follow up MR enterography in December that showed ongoing active, mild inflammation involving similar length of the TI measuring 15-20cm. Today, she reports periodic pressure in her lower abdomen but otherwise remains asymptomatic. She thinks this may be food related and does not correlate it to when she is due for injections or improvement after injection. Currently having 2-3 semiformed stools per day. Denies rectal bleeding, nausea, vomiting, weight loss. Had joint pain in the past that improved with starting Humira. IBD History:Patient established care with our office in January 2022. She was previously followed by Dr. Tovar in [place], [place]. Diagnosed with Crohn's colitis, presumed ileitis based on CT findings in March 2010. Colonoscopy at that time showed ulcerated cecum with narrowing at the ileocolonic anastomosis, and the remainder of the colon was normal. The terminal ileum was not able to be intubated due to stenosis at that time. Biopsy of the ileocolonic anastomosis showed mildly active, chronic colitis. Ascending colon biopsy was normal. The patient denies any prior bowel surgery. Colonoscopy was done due to an abnormal terminal ileum on CT scan. Colonoscopy February 2022 off treatment ([facility]) - initially normal terminal ileum at the distal 4 cm, but at 4-5 cm, there was a 6 mm ulcer with downstream stenosis and at about 5-6 cm with edema, hypertrophied villi. The stenosis could not be traversed, SES-CD-7. There was mild stenosis at the ileocecal valve along with inflammation. A few scattered punctate aphthous erosions throughout the colon with some patchy erythema in the sigmoid, minimal patchy erythema in the rectum. Terminal ileum biopsies showed mildly active, chronic ileitis with erosion consistent with Crohn's disease. Random colon biopsy showed patchy minimally active, chronic colitis consistent with Crohn's. Rectal biopsy showed patchy minimally active, chronic colitis with granuloma consistent with Crohn's.MR enterography February 2022 off treatment: 20 cm segment of wall thickening in the terminal ileum leading into the ileocecal valve. No evidence of stricture or obstruction. Colon was normal. Segment appeared similar to 2010 imaging.MR enterography December 2022 (biweekly Humira): persistent TI inflammation involving 15-20cm. No stenosis, obstruction, fistula, abscess. Medications:Remicade 2009 and did well on this medication for 2 years. She then stopped this due to insurance coverage reasons. When she followed up with Dr. Tovar in 2012, she was 7 months' and there were plans to resume Remicade after delivery. However, she never started Remicade.Humira biweekly started April 2022. She does continue to smoke, but has reduced/cut back to 5-7 cigarettes per day.In February 2022 she was found to have mild elevations in her ALT and AST in April 2022. AST is close to normal now and remainder of her LFTs are normal on most recent labs November 2022. She has had negative serologic liver workup with hepatitis A, B, C, ceruloplasmin, alpha-1 antitrypsin deficiency, smooth muscle antibody, and iron levels. RUQ US April 2022 showed mild to moderate fatty liver. No focal liver lesions. Common bile duct was normal.Labs had shown mild leukopenia in the past but this has resolved. HEALTH MAINTENANCETobacco use - advised tobacco cessation to help with Crohn's management. She currently is smoking 5-7 cigarettes per day. She is aware of tobacco effects on Crohn's disease.NSAIDs - none.Influenza vaccine - up to date. Prevnar 13 - received in April 2022.Pneumovax - none prior. Prevnar 20 - ordered today. COVID-19 vaccine - completed initial series, recommended booster. Hepatitis A and B vaccine - noted to be not immune in February. She reports receiving her 1st hepatitis A and B vaccine through her primary care provider very recently earlier this month. She is unsure if she completed the appropriate vaccine and will follow up with them. Shingrix - received 2021 with PCP. Vitamin D - low in February of this year, 25.6. She reports that she is still completing her weekly vitamin D prescription. Vitamin D normal 11/2022. Continues on daily supplements.Vitamin B12 - normal on April 24 at 505.Derm eval - patient reports a prior diagnosis of psoriasis at age 16. She periodically will have some flare-ups, but nothing currently. 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 Recommended discussing annually screening. QuantiFERON - negative in February 2022.TPMT level - 29 in February 2022. GI Symptoms or Concerns GI Symptoms or Concerns This is a pleasant 32-year-old female presenting via virtual visit for followup regarding Crohn's ileocolitis.Patient established care with our office in January 2022. She was previously followed by Dr. Tovar in [place], [place] for Crohn's disease. She was diagnosed with Crohn's colitis, presumed ileitis based on CT findings in March 2010. Colonoscopy at that time showed ulcerated cecum with narrowing at the ileocolonic anastomosis, and the remainder of the colon was normal. The terminal ileum was not able to be intubated due to stenosis at that time. Biopsy of the ileocolonic anastomosis showed mildly active, chronic colitis. Ascending colon biopsy was normal. The patient has not had any prior bowel surgery. Colonoscopy was done due to an abnormal terminal ileum on CT scan. She was placed on Remicade and did well on this medication for 2 years. She then stopped this due to insurance coverage reasons. When she followed up with Dr. Tovar in 2012, she was 7 month GI Symptoms or Concerns Katya davison 31-year-old female who is seen in clinic today for an injection teaching visit for Humira. This patient is a 31-year-old female with history of Crohn's disease. She was last seen in clinic on April 13 and the decision was made to start her on Humira. She had previously been on Remicade when she was treated at an outside clinic but stopped this due to insurance coverage reasons and never resumed after delivery of a child. Most recent colonoscopy was March 02 which showed a 6 millimeter ulcer in the terminal ileum with downstream stenosis. There were also a few scattered aphthous erosions throughout the colon with some patchy erythema. Terminal ileum biopsies showed mildly active chronic ileitis with erosion consistent with Crohn's disease. Random colon biopsies showed patchy minimally active chronic colitis consistent with Crohn's. The patient has also had elevated liver function tests so these were repeated. Blood work from 04/24/2022 revealed elevati GI Symptoms or Concerns This is a pleasant 31-year-old female presenting via virtual visit for followup regarding Crohn's disease management.The patient established care with our office in January 2022. She was previously followed by Dr. Tovar in [place], [place] for Crohn's disease. She was diagnosed with Crohn's colitis, presumed ileitis based on CT findings in March 2010. I was able to review records following her visit in January after these were received. A colonoscopy in March 2010 was done due to a CT showing an abnormal terminal ileum. Terminal ileum was unable to be intubated due to stenosis at that time. The cecum was ulcerated with narrowing at the ileocolonic anastomosis, and the remainder of the colon was normal. Biopsy of the ileocolonic anastomosis showed mild active, chronic colitis. Ascending colon biopsy was normal. I clarified with the patient today that she has never had any prior bowel surgery. Following her diagnosis, she was placed on Remicade and did well on this m GI Symptoms or Concerns GI Symptoms or Concerns This is a pleasant 31-year-old female with past medical history significant for depression, anxiety, arthritis, presenting via virtual visit for consultation and to establish care for Crohn's disease management.The patient reports being diagnosed with Crohn's disease in [address] Tovar in [place]. I do not have a copy of any of her records in this regard. She believes that her Crohn's disease involves mainly her small bowel, possibly colon. She reports initially being started on an oral pill that did not provide any benefit. She was then started on Remicade from 2009 to 2011. She notes that her symptoms responded very well to the medication, but she is having insurance issues and stopped the medication. She has had ongoing symptoms since that time.Currently, her main complaint is fatigue that has been worsening. She is having approximately 5 bowel movements a day that range that are mainly watery, but occasionally will be formed. She is also having incomplete evacuation and at times will pass only a small amount of stool. She has associated abdominal cramping mainly on the right side of her abdomen. She has occasional nausea. She denies any rectal bleeding, vomiting, fevers, chills, or unintentional weight loss. No significant joint pain or new skin rashes.She has been taking 2 ibuprofen 1 to 2 times daily to help with her abdominal cramping. She smokes half a pack of cigarettes per day. She has a history of anxiety and depression and is currently on venlafaxine and trazodone. She denies any family history of inflammatory bowel disease or colon cancer. Her last colonoscopy was at the time of her diagnosis. She does not recall having updated abdominal imaging. No recent labs or ER visits. Functional Status Date Functional Assessmen t No Information Instructions Date Instruction Additional Infor mckay Given elevated liver function tests we will do addition blood work to rule out hepatitis C and autoimmune liver disease. We will also get an ultrasound of your liver.Humira Schedule-- Next induction dose (80mg): May 12-- First maintenance dose (40mg): May 26. Then continue injections every 2 weeks after. Follow-up with Sobia NOLEN in about 1 month. Expect that she will repeat liver tests at this visit. Related to Elevated LFTs Assessments Type Assessment Date No Information Patient Care Teams Name Effective Dates (start - stop) Status Members No Information
--- OUTSIDE RECORDS SUMMARY | 2023-10-28 04:51 | XMS_ITS | Continuity of Care Document ---
Author Organization [facility] Address [address] [address] [place] [address] Phone Care Team Providers Care Clip Loading Machine Feeder Name Role Phone VargastrSobia Dozier Unavailable Unavailable [...] Diagnoses Date Provider Providers Copied on Encounter [facility], [address] [address], [place], [place], [id number], [place] tel:[phone] [facility] No Information 4 Edstrdereck Ramsay. [address] [facility], [address], [id number], [place]. tel:[phone] Established Level 4 [facility], [address] [address], [facility] [place], [id number], [place] tel:[phone] [facility] GI Symptoms or Concerns (chief complaint) Additional Narrative (chief complaint) Crohn's disease of both small and lg int w/o complications 3 Edstrom [facility] Ramsay. [address] [facility], [facility] [address], [place], [id number], [place]. tel:[phone] Referring Provider: Referral Self, USE FOR SELF REFERRALS. [facility], [address] [address], [facility] [place], [id number], [place] tel:[phone] [facility] No Information 3 Edstrom [facility]UM Ramsay. [address] [facility] [address], [place], [id number], [place]. tel:[phone] [facility], [address] [address], [facility] [place], [id number], [place] tel:[phone] [facility] No Information 3 Edstrom [facility]UM Ramsay. [address] [facility] [address], [place], [id number], [place]. tel:[phone] [facility], [address] [address], [place], [place], [id number], [place] tel:[phone] [facility] Crohn's disease of both small and lg int w/o complications 3 Edstrom [facility]UM Ramsay. [address] [facility], [facility] [address], [place], [place], [id number], [place]. tel:[phone] Referring Provider: Referral Self, USE FOR SELF REFERRALS. [facility], [address] [address], [place], [address], [place] tel:[phone] [facility] Crohn's disease of both small and lg int w/o complications 3 Edstrom [facility]UM Ramsay. [address] [facility] [address], [place], [address], [place]. tel:[phone] Referring Provider: Jing POSEY, [address], [place], [address]. tel:[phone] [facility], [address] [address], [place], [address], [place] tel:[phone] [facility] No Information 3 Feliberto Dhillon. [address] [facility], [facility] [address], [place], [place], [address], [place]. tel:[phone] [facility], [address] [address], [place], [address], [place] tel:[phone] [facility] Crohn's disease of both small and lg int w/o complications 3 Edstrom [facility]UM Ramsay. [address] [facility] [address], [place], [id number], [place]. tel:[phone] [facility], [address] [address], [place], [address], [place] tel:[phone] [facility] Crohn's disease of both small and lg int w/o complicationsP soriasis 3 Edstrom [facility]UM Ramsay. [address], [id number], [place]. tel:[phone] Established Level 3 [facility], [address] [address], [place], [id number], [place] tel:[phone] [facility] GI Symptoms or Concerns (chief complaint) Crohn's disease of both small and lg int w/o complicationsE levated LFTs Jun- 1- 2 Edstrom [facility] Ramsay. [address] [facility] [address], [place], [id number], [place]. tel:[phone] Referring Provider: Jing POSEY, [address], [place], [address]. tel:[phone] [facility], [address] [address], [place], [id number], [place] tel:[phone] [facility] Elevated LFTs Apr- 4 2 Edstrom [facility] Ramsay. [address] [facility] [address], [place], [address], [place]. tel:[phone] [facility], [address] [address], [place], [address], [place] tel:[phone] [facility] Elevated LFTs Apr- 0-202 2 Edstrom [facility] Ramsay. [address], [id number], [place]. tel:[phone] Offic/outpt E&m Estab Low-mod [facility], [address] [address], [place], [id number], [place] tel:[phone] [facility] GI Symptoms or Concerns (chief complaint) Elevated LFTsCrohn's disease of both small and lg int w/o complications Apr- 8 2 Va Stewart. [address], [id number], [place]. tel:[phone] Referring Provider: Referral Self, USE FOR SELF REFERRALS. [facility], [address] [address], [place], [id number], [place] tel:[phone] [facility] No Information 2 Edstrdereck Ramsay. [address] [facility], [facility] [address], [place], [place], [id number], [place]. tel:[phone] [facility], [address] [address], [place], [address], [place] tel:[phone] [facility] Crohn's disease without complication, unspecified gastrointestin al tract location 2 Edstrom CALLUM Ramsay. [address] [facility], [facility] [address], [place], [place], [id number], [place]. tel:[phone] [facility], [address] [address], [place], [id number], [place] tel:[phone] [facility] No Information 2 Edstrdereck Ramsay. [address] [facility], [facility] [address], [place], [place], [address], [place]. tel:[phone] Established Level 4 [facility], [address] [address], [place], [address], [place] tel:[phone] [facility] GI Symptoms or Concerns (chief complaint) Crohn's disease of both small and lg int w/o complications 2 Edstrdereck Ramsay. [address] [facility] [address], [place], [place], [id number], [place]. tel:[phone] Referring Provider: Referral Self, USE FOR SELF REFERRALS. [facility], [address] [address], [place], [address], [place] tel:[phone] [facility] Crohn's disease of both small and large intestine without complication 2 No Information [facility], [address] [address], [place], [address], [place] tel:[phone] [facility] GI Symptoms or Concerns (chief complaint) Crohn's disease of both small and large intestine without complicationCr ohn's disease of both small and lg int w/o complications No Information Referring Provider: Referral Self, USE FOR SELF REFERRALS. [facility], [address] [address], [place], [id number], [place] tel:[phone] [facility] Crohn's disease of both small and lg int w/o complications No Information Referring Provider: Referral Self, USE FOR SELF REFERRALS. New Level 4 [facility], [address] [address], [place], [id number], [place] tel:[phone] [facility] GI Symptoms or Concerns (chief complaint) Crohn's disease, acute, unspecified complication 2 Edstrom CALLUM Ramsay. [address] [facility], [place], [place], [address], [place]. tel:[phone] Referring Provider: Jing Manuel PAC, [address], [place], [address]. tel:[phone] [facility], [address] [address], [place], [id number], [place] tel:[phone] [facility] No Information 2 Feliberto Dhillon. [address] [facility], [address], [place], [place], [id number], [place]. tel:[phone] Family History Family Member Type Diagnosis Age [...] Canine Kidney, preservative free, quadrivalent administered Note: SC IC bi- directional interface ; Source: Other [...] Record Payers Payer name Insurance type Covered alliance party ID Authoriza tion(s) [employer] [facility] [id number] Social History Type Description Quantity Date Captured [...] was previously followed by Dr. Tovar in [place], [place]. Diagnosed with Crohn's colitis, presumed ileitis [...] CT scan. Colonoscopy February 2022 off treatment ([facility]) - initially normal terminal ileum at the [...] nothing currently. 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 Recommended discussing annually screening. QuantiFERON - negative in February 2022.TPMT level - 29 in February 2022. GI Symptoms or Concerns GI Symptoms or Concerns This is a pleasant 32-year-old female presenting via virtual visit for followup regarding Crohn's ileocolitis.Patient established care with our office in January 2022. She was previously followed by Dr. Tovar in [place], [place] for Crohn's disease. She was diagnosed [...] was previously followed by Dr. Tovar in [place], [place] for Crohn's disease. She was diagnosed [...] disease in [address] Tovar in [place]. I do not have a copy of [...]
[2024-12-16] VITALS (7 sets, daily range): BP systolic 114–134; BP diastolic 90–95; PULSE 87–120; RESP 12–20; TEMP 36.2; O2SAT 96–98; BMI 19.6
--- OUTSIDE RECORDS SUMMARY | 2024-12-16 17:27 | XMS_ITS | Clinical Summary ---
Author Organization [facility] Address [address] [place] [address] Care Team Providers Care Blocker And Cutter Contact Lens Name Role Phone No Ref-Primary, Physician Primary Care Provider Allergies No known active allergies Social History Tobacco Use Types Packs/Day Years Used Date Smoking Tobacco: Never Assessed Adolescent Education Answer Date Record ed Getting School Help Needed Not on file 04/11 Comments No Sex and Gender Information Value Date Recorded Sex Assigned at Not on file Legal Sex Female 3:25 AM PUNCH MOLDER Gender Identity Not on file Sexual Orientation Not on file Last Filed Vital Signs Vital Sign Reading Time Taken Comments Blood Pressure 135/89 09/25/2022 11:08 AM CDT Pulse 101 09/25/2022 9:17 AM CDT Temperature 37.2 C (99 F) 09/24/2022 10:04 PM CDT Respiratory Rate 16 09/24/2022 10:15 PM CDT Oxygen Saturation 98% 09/25/2022 11:08 AM CDT Inhaled Oxygen Concentration - - Weight 59 kg (130 lb) 09/24/2022 9:17 PM CDT Height - - Body Mass Index - - Plan of Treatment Health Maintenance Due Date Last Done Comments ADVANCE CARE PLANNING 1991 ANNUAL REVIEW OF HM ORDERS 1991 YEARLY PREVENTIVE VISIT 1994 HIV SCREENING 2006 HEPATITIS C SCREENING 2009 HPV VACCINE (3 - 3-dose series) 05/30/2009 02/26/2009, 11/27/2008 HEPATITIS B VACCINE (1 of 3 - 19+ 3-dose series) 2010 PAP 2012 COVID-19 VACCINE ( season) 2024 06/30/2022, 04/14/2022 PHQ-2 (once per calendar year) 2024 INFLUENZA VACCINE (Season Ended) 2025 06/30/2022, 04/14/2022, 2020, Additional history exists DTAP/TDAP/TD VACCINE (4 - Td or Tdap) 07/07/2027 07/07/2017, 06/13/2013, 02/22/2004 ZOSTER VACCINE (1 of 2) 2041 MENINGITIS VACCINE Aged Out 09/04/2005 No longer eligible based on patient's age to complete this topic PNEUMOCOCCAL VACCINE: PEDIATRICS (0 to 5 YEARS) AND AT-RISK PATIENTS (6 to 49 YEARS) Aged Out 04/24/2022 No longer eligible based on patient's age to complete this topic Insurance [facility] Care Teams Blocker And Cutter Contact Lens Relationship Specialty Start Date End Date No Ref-Primary, Physician PCP - General 09/25/22
--- OUTSIDE RECORDS SUMMARY | 2024-12-16 17:28 | XMS_ITS | Clinical Summary ---
Author Organization [facility] Address [address] [place] [address] Care Team Providers Care Category Director Name Role Phone None Reported, Pcp Primary Care Provider Unavail able Source Comments Patient records contain information from all sites at [facility]. For routine questions regarding patient records, call [phone] during business hours, M-F 8:00 AM - 5:00 PM Central Time. Record requests for emergency care only can be directed to [phone] at any time.[facility] Allergies No known active allergies Medications amphetamine-dex troamphetamine (AdderalL XR) 25 mg 24 hr capsule Take 25 mg by mouth daily. Active gabapentin (Neurontin) 300 mg capsule Take 1 capsule (300 mg total) by mouth every 6 (six) hours for 1 day, THEN 1 capsule (300 mg total) every 8 (eight) hours for 1 day, THEN 1 capsule (300 mg total) every 12 (twelve) hours for 1 day, THEN 1 capsule (300 mg total) at bedtime for 1 day. 10 capsule 06/17/2024 Active Social History Tobacco Use Types Packs/Day Years Used Date Smoking Tobacco: Every Day Cigarettes Tobacco Cessation:Ready to Q uit: Not Asked; Counseling Given: Not Answered Alcohol Use Standard Drinks/Week Comments Yes 0 (1 standard drink = 0.6 oz pur e alcohol) one pint of vodka a day Dental Answer Date Recorded Dental: Regular Dentist Unknown 06/17/20 24 Comments No Sex and Gender Information Value Date Recorded Sex Assigned at Not on file Legal Sex Female 3:04 PM TOUCHER UP Gender Identity Not on file Sexual Orientation Not on file Last Filed Vital Signs Vital Sign Reading Time Taken Comments Blood Pressure 126/90 06/17/2024 5:30 PM TOUCHER UP Pulse 98 06/17/2024 5:30 PM TOUCHER UP Temperature 36.6 C (97.8 F) 06/17/2024 3:06 PM TOUCHER UP Respiratory Rate 20 06/17/2024 5:30 PM TOUCHER UP Oxygen Saturation 98% 06/17/2024 5:30 PM TOUCHER UP Inhaled Oxygen Concentration - - Weight 54.3 kg (119 lb 11.4 oz) 06/17/2024 3:07 PM TOUCHER UP Height - - Body Mass Index - - Plan of Treatment Not on file Insurance ARE Care Teams Category Director Relationship Specialty Start Date End Date None Reported, Pcp PCP - General Family Medicine 06/17/24
--- OUTSIDE RECORDS SUMMARY | 2024-12-16 17:28 | XMS_ITS | Clinical Summary ---
Author Organization [facility] Address [address] [place] [address] Care Team Providers Care Pulpwood Dealer Name Role Phone Jing Manuel PA-C Primary Care Provider [phone] Allergies No known active allergies Medications predniSONE (DELTASONE) 10 mg tablet TAKE 4 TABLETS BY MOUTH DAILY X2 WEEKS THEN 3 DAILY X1 WEEK THEN 2 DAILY X1 WEEK THEN 1 DAILY X1 WEEK 98 tablet 0 0 Active dicyclomine (BENTYL) 10 mg capsule Take 1 capsule by mouth 4 times daily before meals and at bedtime. 90 capsule 2 0 Active dicyclomine (BENTYL) 10 mg capsule Take 1 capsule by mouth 3 times daily before meals. 90 capsule 2 0 Active rx ondansetron (ZOFRAN ODT) 4 mg orally disintegrating tablet (ED DC MED)Indications:Vom iting and diarrhea Place 1 Tablet (4 mg) on the tongue every 8 hours if needed (nausea/vomi ting). 4 Tablet 2 Active ondansetron (ZOFRAN ODT) 4 mg disintegrating tabletIndications:V omiting and diarrhea Place 1 Tablet (4 mg) on the tongue every 8 hours if needed for Nausea/Vomit ing. 10 Tablet 2 Active Immunizations Immunization Administration Dates Next Due Tuberculin (PPD) 03/20/2010 Social History Tobacco Use Types Packs/Day Years Used Date Smoking Tobacco: Former Cigarettes Q uit: 02/09/2013 Tobacco Cessation:Counseling Given: Yes Alcohol Use Standard Drinks/Week Comments Not Asked 0 (1 standard drink = 0.6 oz pur e alcohol) Comments Unknown Sex and Gender Information Value Date Recorded Sex Assigned at Not on file Legal Sex Female 5:47 AM PLACEMENT MANAGER Gender Identity Not on file Sexual Orientation Not on file Obstetrics History Last Filed Vital Signs Vital Sign Reading Time Taken Comments Blood Pressure 129/87 06/21/2022 7:08 PM PLACEMENT MANAGER Pulse 106 06/21/2022 7:08 PM PLACEMENT MANAGER Temperature 36.3 C (97.3 F) 06/21/2022 7:08 PM PLACEMENT MANAGER Respiratory Rate 20 06/21/2022 7:08 PM PLACEMENT MANAGER Oxygen Saturation 96% 06/21/2022 7:08 PM PLACEMENT MANAGER Inhaled Oxygen Concentration - - Weight 62.1 kg (137 lb) 06/21/2022 7:08 PM PLACEMENT MANAGER Height 170.2 cm (5' 7) 06/21/2022 7:08 PM PLACEMENT MANAGER Body Mass Index 21.46 06/21/2022 7:08 PM PLACEMENT MANAGER Plan of Treatment Health Maintenance Due Date Last Done Comments Tdap 2002 Depression screening for age 12+ 2003 HIV for age 15-65 2006 BMI (ht and wt on same day) for age 18+ 2009 Hepatitis C screening for ag e 18-79 2009 Hepatitis B series for 19+ ( 1 of 3 - 19+ 3-dose series) 2010 Tetanus booster 2011 Pap test for age 21-65 03/19/2023 , 04/19/2017, 10/10/2013 COVID-19 vaccine series ( season) 2024 06/30/2022, 04/14/2022 Influenza Vaccine (Season Ended) 2025 Pneumococcal series for age 6-49 Aged Out No longer eligible b ased on patient's age to complete this topic Procedures Procedure Name Priority Date/Time Associated Diagnosis Comments SHIP ENGINEER THIN PREP PAP SCREEN IMAGED Routine 03/19/2020 3:20 PM CDT from Last 3 Months or Most Recently Relevant to Health Maintenance Results * SHIP ENGINEER THIN PREP PAP SCREEN IMAGED (03/19/2020 3:20 PM CDT) Case Report Gynecologic Cytology Report Case: [id number] Authorizing Provider: Jing Manuel PA-C Collected: 03/19/2020 1520 Ordering Location: [facility] Received: 03/21/2020 0910 First Screen: Batsheva Hernandes Specimen: SHIP ENGINEER ThinPrep Vial Screening, Cervical/Vaginal 03/28/2020 9:03 AM CDT [facility] [employer] [facility] INTERPRETATION/ RESULT NEGATIVE FOR INTRAEPITHELIAL LESION OR MALIGNANCY (NIL) (none) 03/28/2020 9:03 AM CDT [facility] at 0903 CDT SPECIMEN ADEQUACY Satisfactory for evaluation Endocervical component present 03/28/2020 9:03 AM CDT [facility] HPV REQUEST HPV if ASCUS 03/28/2020 9:03 AM CDT [facility] Last Pap Date 04/19/2017 03/28/2020 9:03 AM CDT [facility] Last Pap Result NIL 0 9:03 AM CDT [facility] Menstrual Status 03/28/2020 9:03 AM CDT [facility] Comment:pogesterone injectio ns, no periods Additional Information 03/28/2020 9:03 AM CDT [facility] Comment: Interpreted at [facility] - [address], [place] [address] Automated Review Successful 03/28/2020 9:03 AM CDT [facility] Comment:Specimen processed s uccessfully by automated piston maker device, ThinPrep Imaging System, [employer] Note The pap test is a screening technique, not a diagnostic procedure. It is used primarily to screen for squamous cancers and precursor lesions. Published studies have shown that it is subject to both false negative and false positive results. The pap test should not be used as the sole means to diagnose or exclude pre-malignant and malignant lesions. 03/28/2020 9:03 AM CDT [facility] Other (Cervical/Vagina l) 03/19/2020 3:20 PM CDT 03/21/2020 9:10 AM CDT Jing Manuel PA-C PATHOLOGY/CYTOLOGY Final Resu lt [facility] [address] [place] [address], from Last 3 Months or Most Recently Relevant to Health Maintenance Insurance [facility] Care Teams Pulpwood Dealer Relationship Specialty Start Date End Date Jing Manuel PA-C [facility] [place] [address] PCP - General Physician Reinforced Steel Placing Supervisor 02/10/22
--- NOTE | 2024-12-16 17:47 | ED.GENADULT ---
HPI - General Adult General Chief complaint: Nausea/Vomiting Stated complaint: Potential Alcohol withdrawal Time Seen by Provider: 12/16/24 17:26 History of Present Illness HPI narrative: [age] white female with history of alcoholism and history of Crohn's disease currently not treated, presents with nausea vomiting over the last couple of weeks. She has pretty heavy alcohol intake she describes. She would like to stop. She thinks she has some type of seizure in the past, but that has not been recurrent. She had this even when she was apparently drinking that same day, but was stressed at work. This is unclear. At this point she feels nausea and vomiting about her main complaint. She has had no fevers, rigors, chest pain or shortness of breath. She would like to stop drinking. She reports drinking earlier today. She is currently not working. She has a his she past history of anxiety depression. Crohn's disease, ADHD, psoriasis, insomnia, myofascial low back pain. Related Data Previous Rx's ?Medication ?Instructions ?Recorded dextroamphetamine-amphetamine ER 25 mg PO QAM #30 caps 08/08/24 25 mg 24hr capsule,extend release (Adderall XR) dextroamphetamine-amphetamine ER 25 mg PO QAM #30 caps 08/08/24 25 mg 24hr capsule,extend release (Adderall XR) potassium chloride 10 mEq 10 meq PO QDAY #30 tabs 09/12/24 tablet,extended release amoxicillin 875 mg-potassium 1 tab PO BID #20 tabs 10/18/24 clavulanate 125 mg tablet dextroamphetamine-amphetamine ER 25 mg PO QAM #30 caps 11/20/24 25 mg 24hr capsule,extend release (Adderall XR) gabapentin 300 mg capsule 300 mg PO QHS #90 caps 11/20/24 Allergies Allergy/AdvReac Type Severity Reaction Status Date / Time No Known Drug Allergies Allergy Verified 12/16/24 17:35 [facility] Medical History History of seizure ?Z87.898 - Personal history of other specified conditions (ICD-10) Family History Father Asthma COPD (chronic obstructive pulmonary disease) Paternal Grandfather Heart disease Maternal Grandmother Leukemia Skin cancer Mother Suicide Social History Narrative: father is still living sister is in good health depo-provera contraceptive status history of tobacco use Smoking Status: Current every day smoker What tobacco products do you use: cigarettes How often do you have a drink containing alcohol: 4 or more times a week How often do you have six or more drinks on one occasion: Daily or almost daily AUDIT-C Alcohol total score: 8 Non-prescribed substance use: denies use Exam Narrative: Exam Narrative: Objective: In general the patient is in no apparent distress she is resting comfortably her pulse is slightly elevated 120 blood pressure is 134/95 she is afebrile O2 sat is 97% on room air Alert orient x3 she seems anxious, but not tremulous. She is most concerned about her inability to eat over the last couple of weeks. She has not had blood in her stool by her report HEENT is unremarkable no facial asymmetry no scleral icterus neck is supple pulse regular abdomen is benign soft she is moving all extremities are developed difficulty, good peripheral perfusion noted. She denies any specific trauma or injury. Const: Vital Signs, click to edit/add: Vital Signs - 24 hr 12/16/24 17:38 12/16/24 18:05 12/16/24 18:06 Temperature 97.2 F L Pulse Rate 96 103 H Pulse Rate [Pulse Oximeter] 120 H Respiratory Rate 20 Blood Pressure 126/92 H Blood Pressure [Ri ght Upper Arm] 134/95 H Pulse Oximetry 97 97 97 Oxygen Delivery Me thod Room Air 12/16/24 18:15 12/16/24 18:30 12/16/24 18:31 Temperature Pulse Rate 115 H 92 87 Pulse Rate [Pulse Oximeter] Respiratory Rate Blood Pressure 114/90 H Blood Pressure [Ri ght Upper Arm] Pulse Oximetry 96 97 96 Oxygen Delivery Me thod 12/16/24 18:45 Temperature Pulse Rate 89 Pulse Rate [Pulse Oximeter] Respiratory Rate 12 Blood Pressure Blood Pressure [Ri ght Upper Arm] Pulse Oximetry 98 Oxygen Delivery Me thod Course Vital Signs Vital signs: Initial Vital Signs Temperature 97.2 F L 12/16/24 17:38 Temperature Source Temporal Artery Scan 12/16/24 17:38 Pulse Rate 120 H 12/16/24 17:38 Respiratory Rate 20 12/16/24 17:38 Blood Pressure 134/95 H 12/16/24 17:38 Blood Pressure Mean 108 H 12/16/24 17:38 Pulse Oximetry 97 12/16/24 17:38 Oxygen Delivery Method Room Air 12/16/24 17:38 Vital Signs Temperature 97.2 F L 12/16/24 17:38 Pulse Rate 120 H 12/16/24 17:38 Respiratory Rate 20 12/16/24 17:38 Blood Pressure 134/95 H 12/16/24 17:38 Pulse Oximetry 97 12/16/24 17:38 Oxygen Delivery Method Room Air 12/16/24 17:38 Temperature 97.2 F L 12/16/24 17:38 Pulse Rate 89 12/16/24 18:45 Respiratory Rate 12 12/16/24 18:45 Blood Pressure 114/90 H 12/16/24 18:31 Pulse Oximetry 98 12/16/24 18:45 Oxygen Delivery Method Room Air 12/16/24 17:38 Medications Administered Medications: Discontinued Medications Generic Name Dose Route Start Last Admin Trade Name Seth PRN Reason Stop Dose Admin Sodium Chloride 1,000 mls @ 6,000 mls/hr 12/16/24 17:45 12/16/24 18:06 0.9 % Sodium Chloride 1000 Ml IV 12/16/24 17:54 6,000 mls/hr .Q10M JORGE Administration Thiamine HCl 250 mg/ Sodium 102.5 mls @ 102.5 mls/hr 12/16/24 17:45 12/16/24 18:19 Chloride IVPB 12/16/24 17:46 102.5 mls/hr ONCE ONE Administration Lorazepam 1 mg 12/16/24 17:43 12/16/24 18:26 Lorazepam 1 Mg Tablet PO 12/16/24 17:44 1 mg ONCE ONE Administration Ondansetron HCl 4 mg 12/16/24 17:43 12/16/24 18:06 Ondansetron 2 Mg/Ml Inj IVP 12/16/24 17:44 4 mg ONCE ONE Administration Medical Decision Making [facility] Narrative Medical decision making narrative: 34-year-old female alcoholic with Crohn's disease, anxiety depression, insomnia presents with wanting to stop drinking. She drank today. Unlikely to have withdrawal now. Will check alcohol level, labs, IV fluid be given as well as folate orally thiamin Zofran and oral Ativan. Will give fluid. Will give a multivitamin as well. Check a magnesium level electrolytes. Disposition pending findings above. Will also check a lipase make sure doesnt have pancreatitis. Will given the number for social service to call regarding getting a screening study for inpatient care for alcoholism. Addendum 7:00 p.m.: Patient's alcohol level is 0.08, she agrees to call for help from social service regarding treatment options for her. She will do this Wednesday morning. She feels better after fluids and medications. Recommend of multivitamins home. Recommend good fluid intake of water, would also recommend that she have 0.5 of Ativan at home to use t.i.d. p.r.n. over the next couple of days if needed. Recommend she abstain from alcohol and call social Service as above. Return to ED if problems or concerns. Also recommend she recheck her liver function profile with her primary care doctor in the next week or so. Lab Data Labs: Lab Results 12/16/24 Range/Units 17:50 WBC 8.80 (4.50-11.00) K/uL RBC 3.82 L (4.00-5.20) m/uL Hgb 14.0 (12.0-16.0) gm/dL Hct 40.4 (33.0-51.0) % MCV 106 H (80-100) fL MCH 37 H (26-34) pg MCHC 35 (32-36) gm/dL RDW Coeff of Darrell 11.8 (11.5-15.5) % Plt Count 246 (140-440) K/uL Neut % (Auto) 83.3 H (42.0-72.0) % Lymph % (Auto) 6.5 L (20-44) % [place] % (Auto) 8.3 (0.0-11.0) % Eos % (Auto) 0.2 (0.0-7.0) % Baso % (Auto) 0.1 (0.0-3.0) % Neut # (Auto) 7.30 H (1.7-7.0) K/uL Lymph # (Auto) 0.60 L (0.90-2.90) K/uL [place] # (Auto) 0.70 (0.00-0.90) K/UL Eos # (Auto) 0.02 (0.00-0.50) K/uL Baso # (Auto) 0.01 (0.00-0.30) K/uL Abs Immat Gran (auto) 0.14 (0.00-0.30) K/uL Imm/Tot Granulo (auto) 1.6 % Sodium 142 (135-149) mmol/L Potassium 3.7 (3.6-5.1) mmol/L Chloride 102 (96-114) mmol/L Carbon Dioxide 27 (20-32) mmol/L Anion Gap 13 (7-15) mEq/L BUN 5 (5-24) mg/dL Creatinine 0.5 (0.5-1.5) mg/dL Estimated Creat Clear 143.24 Estimated GFR 127 ml/min Glucose 112 (60-115) mg/dL Calcium 9.5 (8.4-10.6) mg/dL Magnesium 1.5 (1.5-2.6) mg/dL Total Bilirubin 0.8 (0.1-1.5) mg/dL Direct Bilirubin 0.3 (0.0-0.5) mg/dL AST 457 H (12-35) U/L ALT 132 H (4-35) U/L Alkaline Phosphatase 139 (40-150) U/L C-Reactive Protein < 0.5 L (0.5-1.0) mg/dL Total Protein 8.2 (6.0-8.3) g/dL Albumin 4.9 (3.3-5.0) g/dL Amylase 54 (18-89) U/L Lipase 101 (23-300) U/L Ethyl Alcohol 0.08 H (0.01-0.03) % Discharge Plan Discharge Clinical Impression: Anxiety and depression, Alcoholism, Crohn's disease Patient Disposition: Home w/ Parent or Adult Condition: Improved Additional Instructions: Ativan as needed for anxiety for the next couple of days as needed, recommend cessation of alcohol and recommend you talk to social service on Wednesday regarding treatment options. Recommend multivitamin daily. Recommend he follow up with Ms. Manuel in the next week to 10 days to get year labs redone and recheck her liver function tests. Activity Level: Light activity Discharge Diet: Regular Prescriptions: No Action dextroamphetamine-amphetamine [Adderall XR] 25 mg capsule,extended release 24hr 25 mg PO QAM Qty: 30 0RF dextroamphetamine-amphetamine [Adderall XR] 25 mg capsule,extended release 24hr 25 mg PO QAM Qty: 30 0RF amoxicillin-pot clavulanate 875-125 mg tablet 1 tab PO BID Qty: 20 0RF potassium chloride 10 mEq tablet extended release 10 meq PO QDAY Qty: 30 0RF dextroamphetamine-amphetamine [Adderall XR] 25 mg capsule,extended release 24hr 25 mg PO QAM Qty: 30 0RF gabapentin 300 mg capsule 300 mg PO QHS Qty: 90 0RF Follow Up/Referrals: Jing Manuel, PAAndraeC [Primary Care Provider, Family Practice] Stand Alone Forms: [facility] Info Instructions
[2024-12-16 18:03] LABS: Basophils Absolute Auto 0.01 K/uL (0.00-0.30); Basophils Percent Auto 0.1 % (0.0-3.0); Eosinophils Absolute Auto 0.02 K/uL (0.00-0.50); Eosinophils Percent Auto 0.2 % (0.0-7.0); Hematocrit 40.4 % (33.0-51.0); Immature Granulocytes Abs Auto 0.14 K/uL (0.00-0.30); Immature Granulocytes Pct Auto 1.6 %; Lymphocytes Percent Auto 6.5 % (20-44); Mean Corpuscular HGB Conc 35 gm/dL (32-36); Mean Corpuscular Hemoglobin 37 pg (26-34); Mean Corpuscular Volume 106 fL (80-100); Monocytes Percent Auto 8.3 % (0.0-11.0); Neutrophils Percent Auto 83.3 % (42.0-72.0); Platelet Count* 246 K/uL (140-440); RDW Coefficient of Variation % 11.8 % (11.5-15.5); Red Blood Count 3.82 m/uL (4.00-5.20); Slide Review Reflex No
[2024-12-16] MEDS: ONDANSETRON 2 MG/ML inj 4 MG IVP (18:06)
[2024-12-16] MEDS: 0.9 % SODIUM CHLORIDE 1000 ml 1,000 ML 6000 ML IV (18:06)
[2024-12-16 18:18] LABS: Albumin* 4.9 g/dL (3.3-5.0); Chloride* 102 mmol/L (96-114)
[2024-12-16 18:19] LABS: Potassium* 3.7 mmol/L (3.6-5.1); Sodium* 142 mmol/L (135-149)
[2024-12-16] MEDS: THIAMINE 250 MG in 0.9 % SODIUM CHLORIDE 100 ml 100 ML 102.5 MG IVPB (18:19)
[2024-12-16 18:21] LABS: Alanine Aminotransferase* 132 U/L (4-35); Alkaline Phosphatase* 139 U/L (40-150); Amylase* 54 U/L (18-89); Aspartate Amino Transferase* 457 U/L (12-35); Bilirubin Direct* 0.3 mg/dL (0.0-0.5); Bilirubin Total* 0.8 mg/dL (0.1-1.5); Blood Urea Nitrogen* 5 mg/dL (5-24); Carbon Dioxide* 27 mmol/L (20-32); Creatinine* 0.5 mg/dL (0.5-1.5); Est. Creatinine Clearance* 143.24; Estimated Glomerular Filt Rate 127 ml/min; Total Protein* 8.2 g/dL (6.0-8.3)
[2024-12-16 18:22] LABS: Calcium* 9.5 mg/dL (8.4-10.6); Ethanol* 0.08 % (0.01-0.03); Glucose* 112 mg/dL (60-115); Lipase* 101 U/L (23-300); Magnesium* 1.5 mg/dL (1.5-2.6)
[2024-12-16 18:24] LABS: Anion Gap 13 mEq/L (7-15)
[2024-12-16 18:25] LABS: C Reactive Protein* < 0.5 mg/dL (0.5-1.0)
[2024-12-16] MEDS: LORazepam 1 MG TABLET PO (18:26)
[2024-12-16] MEDS: FOLIC ACID 1 MG TABLET PO (18:45)
[2024-12-16] MEDS: MULTIVITAMIN/MINERALS 1 TABLET 1 TAB PO (18:45)
== END 2024-12-16 19:28 | disposition home or self-care (01) ==
PROVIDERS: Emergency Provider Family Medicine; PCP Physician Assistant Medical
DX: F41.8 Other specified anxiety disorders (principal); F10.20 Alcohol dependence, uncomplicated; K50.90 Crohn's disease, unspecified, without complications
CPT/HCPCS: 36415; 80048; 80076; 82077; 82150; 83690; 83735; 85025; 86140; 96365; 96375; 99284; A9153; A9270; J2405; J3411; J7030

== ENCOUNTER 2025-04-19 09:16 | Outpatient (CLI) | payer MEDICAID, SELFPAY ==
[2025-04-21 02:34] LABS: HPV Source Cervical/Vag
[2025-04-25 11:07] LABS: Pap Test Digital Imaging Done
== END 2025-04-19 09:17 | disposition home or self-care (01) ==
PROVIDERS: PCP Physician Assistant Medical; Visit Provider Physician Assistant Medical
DX: Z01.419 Encounter for gynecological examination (general) (routine) without abnormal findings (principal); F10.10 Alcohol abuse, uncomplicated; Z11.3 Encounter for screening for infections with a predominantly sexual mode of transmission
CPT/HCPCS: 80053; 80061; 84443; 86592; 86703; 86706; 86803; 87340; 87491; 87591; 87624; 87625; 88141; 88142; 88175